=== PATIENT | male | born 1995 | race Caucasian/White ===

== ENCOUNTER 2019-10-20 23:04 | Emergency (ER) | payer OTHER ==
[~2019-10-20] VITALS: Ht 162.6 cm; Wt 56.8 kg
[2019-10-20 23:05] VITALS: BP 142/87
[2019-10-20] MEDS ORDERED: MELO15TA28 PO (23:17)
[2019-10-20] MEDS ORDERED: TIZA4CAP PO (23:17)
[2019-10-20] MEDS ORDERED: CYCL5TAB PO (23:17)
[2019-10-20] MEDS ORDERED: KETOROLAC 60 MG/2 ML VIAL (J1885) IM ONE (23:45)
== END 2019-10-21 00:15 | disposition home or self-care (01) ==
LOC: M ED 23:04
DX: G89.29 Other chronic pain (principal); M54.5 Low back pain; Z79.899 Other long term (current) drug therapy
CPT/HCPCS: 96372; 99282; J1885